=== PATIENT | male | born 1995 | race Caucasian/White ===

== ENCOUNTER 2019-09-24 20:41 | Emergency (ER) | payer MEDICAID ==
[~2019-09-24] VITALS: Ht 175.3 cm; Wt 99.8 kg
[2019-09-24 20:45] VITALS: BP_SYST 134
--- NOTE | 2019-09-24 21:08 | NUR ---
Patient to ER bed 2 to gown for evaluation. Side rails up. Report given to ELIZABETH MILLER.
--- NOTE | 2019-09-24 21:09 | NUR ---
Pt brought in by self. Pt awake, alert, oriented x4. Pt states chief complaint of abdominal pain in RLQ 6/10 sharp, radiating to R flank. Pt states that he has had increasing pain x3 days with diarrhea and nausea vomiting intermittent. Pt states that he went to urgent care earlier today, and they performed a physical exam, no imaging, and reccommended that he go to the nearest emergency room as they suspected appendicitis. Pt denies chest pain, urinary complications, shortness of breath, dizziness, diaphoresis. Pt denies any other medical complaint at this time. Pt states he has not taken anything for pain or other symptoms. Pt has no HX of pancreatitis and still has his gallbladder per patient interview. Pt resting in ED bed. No acute distress at this time, VSS.
--- NOTE | 2019-09-24 21:30 | NUR ---
# 20 gauge angiocath placed to RAC. Use of asceptic technique. Opsite placed over site. Blood return noted. Blood for lab drawn from site. Flushed with 10 cc of normal saline. No evidence of infiltration noted. Patient tolerated well.
--- NOTE | 2019-09-24 21:32 | NUR ---
ER MD SANCHEZ AT BEDSIDE EXAMINING PATIENT.
[2019-09-24 21:52] LABS: BASOPHILS # (AUTO) 0.1 K/uL (0.0-0.2); EOSINOPHILS # (AUTO) 0.1 K/uL (0.0-0.4); EOSINOPHILS % (AUTO) 1.6 % (0.0-4.0); HEMATOCRIT 44.3 % (36-54); HEMOGLOBIN 14.9 g/dL (14.0-18.0); LYMPHOCYTES # (AUTO) 2.6 K/uL (1.0-5.5); LYMPHOCYTES % (AUTO) 39.1 % (20.5-51.5); MEAN CORPUSCULAR HEMOGLOBIN 32 pg (27-31); MEAN CORPUSCULAR HGB CONC 34 % (32-36); MEAN CORPUSCULAR VOLUME 95 fL (79.0-98.0); MONOCYTES # (AUTO) 0.7 K/uL (0.0-1.0); NEUTROPHILS # (AUTO) 3.2 K/uL (1.8-7.7); NEUTROPHILS % (AUTO) 47.3 % (40.0-70.0); PLATELET COUNT (AUTO) 257 K/uL (130-430); RED BLOOD CELL COUNT(AUTO) 4.67 MIL/uL (4.2-6.2); RED CELL DISTRIBUTION WIDTH 13.2 % (9.0-15.0); WHITE BLOOD COUNT (AUTO) 6.7 K/uL (4.8-10.8)
[2019-09-24] MEDS ORDERED: NACL 0.9% 1,000 ML IV ONE (22:00)
[2019-09-24 22:10] LABS: BILIRUBIN,URINE NEGATIVE (NEGATIVE); BLOOD, URINE NEGATIVE (NEGATIVE); CLARITY/URINE CLEAR (CLEAR); COLOR,URINE YELLOW (YELLOW); GLUCOSE,URINE NEGATIVE (NEGATIVE); KETONES,URINE NEGATIVE (NEGATIVE); LEUKOCYTE ESTERASE ,URINE NEGATIVE (NEGATIVE); NITRITE, URINE NEGATIVE (NEGATIVE); PROTEIN URINE NEGATIVE (NEGATIVE); UROBILINOGEN,URINE 0.2 (0.2-1.0)
[2019-09-24] MEDS ORDERED: MORPHINE 4 MG/ML INJ. SYRINGE IVP ONE (22:15)
--- NOTE | 2019-09-24 22:15 | NUR ---
Pt resting in bed. VSS. IVF infusing and pain medication given per MD order. Will continue to monitor.
[2019-09-24 22:20] LABS: CALCIUM 8.7 mg/dL (8.4-11.0); CREATININE 1.02 mg/dL (0.55-1.30); POTASSIUM 3.4 mmol/L (3.5-5.1)
[2019-09-24 22:22] LABS: INR 0.9 (0.80-1.20); PROTHROMBIN TIME 9.4 SECS (9.5-12.5)
[2019-09-24 22:24] LABS: TOTAL BILIRUBIN 0.4 mg/dL (0.0-1.0)
[2019-09-25] MEDS ORDERED: MAG HYDROX/AL HYDROX/SIMETH 30 ML, LIDOCAINE VISCOUS 2% 15ML (PO) 10 ML, DICYCLOMINE HC... PO ONE ×3 (00:30)
[2019-09-25 01:30] VITALS: BP_SYST 110
--- NOTE | 2019-09-25 01:30 | NUR ---
Patient given written and verbal discharge instructions and verbalizes understanding. ER MD discussed with patient the results and treatment provided. Patient in stable condition. ID arm band removed. IV catheter removed intact and dressing applied, no active bleeding. Rx of Protonix given. Patient educated on pain management and to follow up with PMD. Pain Scale 0/10. Opportunity for questions provided and answered. Medication side effect fact sheet provided.
== END 2019-09-25 01:30 | disposition home or self-care (01) ==
LOC: SED 20:41
DX: K52.9 Noninfective gastroenteritis and colitis, unspecified (principal)
CPT/HCPCS: 36415; 74176; 80053; 81003; 82150; 82962; 83690; 85025; 85610; 96361; 96374; 99284; J2001; J2270; J7030